=== PATIENT | female | born 1985 | race Caucasian/White ===

== ENCOUNTER 2019-01-03 22:44 | Emergency (ER) | payer BC, OTHER ==
[~2019-01-03] VITALS: Ht 157.5 cm; Wt 60.6 kg
[2019-01-03 23:19] VITALS: Ht 157.5 cm; Wt 60.6 kg
[2019-01-04] MEDS ORDERED: ONDANSETRON 4 MG INJ IV STA (00:20)
[2019-01-04] MEDS ORDERED: HYDROmorphONE 0.5 MG/0.5 ML SYG IV STA ×2 (00:20→01:08)
[2019-01-04] MEDS ORDERED: hydrALAzine 20 MG INJ IV ONE (00:30)
[2019-01-04] MEDS ORDERED: METOCLOPRAMIDE 10 MG INJ IV ONE (01:00)
[2019-01-04] MEDS ORDERED: FUROSEMIDE 40 MG INJ ONE (01:09)
[2019-01-04] MEDS ORDERED: FUROSEMIDE 40 MG INJ IV ONE (01:30)
[2019-01-04] MEDS ORDERED: HYDROmorphONE 2 MG/ML SYG IV STA (03:40)
[2019-01-04] MEDS ORDERED: CARV12.579 PO (04:55)
[2019-01-04] MEDS ORDERED: SPIR25TA PO (04:55)
[2019-01-04] MEDS ORDERED: LISI40TA3 PO (04:55)
[2019-01-04] MEDS ORDERED: ALPR1TAB7 PO (04:55)
[2019-01-04] MEDS ORDERED: CLON1TAB13 PO (04:55)
[2019-01-04] MEDS ORDERED: HYDR-3609 PO (04:55)
[2019-01-04] MEDS ORDERED: POTA20TA15 PO (04:55)
[2019-01-04] MEDS ORDERED: FER325 PO (04:55)
[2019-01-04] MEDS ORDERED: FURO40TA4 PO (04:55)
[2019-01-04] MEDS ORDERED: HYDR-3980 PO (05:48)
--- NOTE | 2019-01-04 05:52 | ERD ---
ER Documentation Chief Complaint Chief Complaint tingling in feet and hands, hx CHF, CKD stage 4 HPI Is a 33-year-old female history of chronic kidney disease stage IV, with some numbness and tingling in her hands and her feet. She was a code green. Mother is getting surgery upstairs. She claims that her blood pressures been elevated and she was unable to take her nighttime medication. She denies any focal neurologic complaints but does complain of headache. Denies any other issues. Headache is mild to moderate intensity with no exacerbating alleviating factors. Denies any fevers or chills. Denies any visual acuity changes. Denies any other current issues ROS All systems reviewed and are negative except as per history of present illness. Medications Home Meds Active Scripts Hydrocodone/Acetaminophen ([place] 10-325 Tablet) 1 Each Tablet, 1 TAB PO Q6H PRN for PAIN, #7 TAB Prov:JOVANNY SHARMA 01/04/19 Reported Medications Clonazepam* (Clonazepam*) 1 Mg Tablet, 1 MG PO Q8H PRN for ANXIETY, TAB 01/04/19 Potassium Chloride* (K-Dur*) 20 Meq Tab.prt.sr, 20 MEQ PO BID for 30 Days, #60 01/04/19 Ferrous Sulfate* (Ferrous Sulfate*) 325 Mg Tabec, 325 MG PO DAILY for 30 Days, #30 01/04/19 Lisinopril* (Lisinopril*) 40 Mg Tablet, 40 MG PO DAILY 01/04/19 Spironolactone* (Aldactone*) 25 Mg Tablet, 25 MG PO BID for 30 Days, #60 01/04/19 Furosemide* (Furosemide*) 40 Mg Tablet, 40 MG PO DAILY for 30 Days, #30 01/04/19 Hydrocodone/Acetaminophen (Hydrocodone-Acetamin 10-325 mg) 1 Each Tablet, 1 TAB PO Q6H PRN for PAIN LEVEL 6-10 01/04/19 Alprazolam* (Alprazolam*) 1 Mg Tablet, 1 MG PO TID for 30 Days, #90 01/04/19 Carvedilol* (Carvedilol*) 12.5 Mg Tablet, 12.5 MG PO DAILY for 30 Days, #30 01/04/19 Allergies Allergies: Coded Allergies: morphine (Verified Allergy, Unknown, paranoid, 01/03/19) nitroglycerin (Verified Allergy, Unknown, pt unsure, 01/03/19) PMhx/Soc History of Surgery: No Anesthesia Reaction: No Hx Neurological Disorder: No Hx Respiratory Disorders: Yes (CHF) Hx Cardiac Disorders: Yes (HTN ) Hx Psychiatric Problems: No Hx Miscellaneous Medical Probl: Yes (CKD) Hx Alcohol Use: No Hx Substance Use: No Hx Tobacco Use: No Smoking Status: Never smoker Physical Exam Vitals Vital Signs Date Temp Pulse Resp B/P (MAP) Pulse Ox O2 O2 Flow FiO2 Time Delivery Rate 01/04/19 77 10 184/135 100 Room Air 03:33 (151) 01/04/19 79 20 167/110 99 Room Air 00:21 (129) 01/03/19 84 16 204/123 100 23:19 (150) Physical Exam Const: No acute distress Head: Atraumatic Eyes: Normal Conjunctiva ENT: Normal External Ears, Nose and Mouth. Neck: Full range of motion. No meningismus. Resp: Clear to auscultation bilaterally Cardio: Regular rate and rhythm, no murmurs Abd: Soft, non tender, non distended. Normal bowel sounds Skin: No petechiae or rashes Back: No midline or flank tenderness Ext: No cyanosis, or edema Neur: Awake and alert Psych: Normal Mood and Affect Result Diagram: 01/04/19 0013 01/04/19 0012 Results 24 hrs Laboratory Tests Test 01/04/19 00:12 01/04/19 00:13 Sodium Level 140 mmol/L Potassium Level 4.0 mmol/L Chloride Level 103 mmol/L Carbon Dioxide Level 26 mmol/L Anion Gap 11 Blood Urea Nitrogen 18 mg/dl Creatinine 0.92 mg/dl Est Glomerular Filtrat Rate mL/min > 60 mL/min Glucose Level 104 mg/dl Calcium Level 9.5 mg/dl Total Bilirubin 0.1 mg/dl Direct Bilirubin 0.00 mg/dl Indirect Bilirubin 0.1 mg/dl Aspartate Amino Transf (AST/SGOT) 17 IU/L Alanine Aminotransferase (ALT/SGPT) 25 IU/L Alkaline Phosphatase 48 IU/L Troponin I < 0.012 ng/ml B-Type Natriuretic Peptide 48 PG/ML Total Protein 7.5 g/dl Albumin 4.4 g/dl Globulin 3.10 g/dl Albumin/Globulin Ratio 1.41 White Blood Count 4.4 10^3/ul Red Blood Count 3.88 10^6/ul Hemoglobin 9.7 g/dl Hematocrit 31.8 % Mean Corpuscular Volume 82.0 fl Mean Corpuscular Hemoglobin 25.0 pg Mean Corpuscular Hemoglobin Concent 30.5 g/dl Red Cell Distribution Width 15.2 % Platelet Count 256 10^3/UL Mean Platelet Volume 9.5 fl Immature Granulocytes % 0.200 % Neutrophils % 51.6 % Lymphocytes % 33.7 % Monocytes % 12.9 % Eosinophils % 1.1 % Basophils % 0.5 % Nucleated Red Blood Cells % 0.0 /100WBC Immature Granulocytes # 0.010 10^3/ul Neutrophils # 2.3 10^3/ul Lymphocytes # 1.5 10^3/ul Monocytes # 0.6 10^3/ul Eosinophils # 0.1 10^3/ul Basophils # 0.0 10^3/ul Nucleated Red Blood Cells # 0.0 10^3/ul Current Medications Medications Dose Sig/[place] Start Time Status Last (Trade) Ordered Route PRN Stop Time Admin Dose Reason Admin Hydralazine 20 mg ONCE ONCE 01/04/19 DC HCl IV 00:30 01/04/19 (Apresoline) 00:30 1 mg ONCE STAT 01/04/19 DC 01/04/19 Hydromorphone IV 00:20 01/04/19 00:30 HCl 00:22 (Dilaudid) Ondansetron 4 mg ONCE STAT 01/04/19 DC 01/04/19 HCl (Zofran IV 00:20 01/04/19 00:30 Inj) 00:22 5 mg ONCE ONCE 01/04/19 DC 01/04/19 Metoclopramid IV 01:00 01/04/19 01:12 e HCl 01:02 (Reglan) Furosemide 80 mg ONCE ONCE 01/04/19 DC 01/04/19 (Lasix) IV 01:30 01/04/19 01:12 01:31 1 mg ONCE STAT 01/04/19 DC 01/04/19 Hydromorphone IV 01:08 01/04/19 01:12 HCl 01:09 (Dilaudid) Furosemide 40 mg STK-MED 01/04/19 DC (Lasix) ONCE .ROUTE 01:09 01/04/19 01:10 2 mg ONCE STAT 01/04/19 DC 01/04/19 Hydromorphone IV 03:40 01/04/19 03:45 HCl 03:41 (Dilaudid) Alprazolam 0.5 mg ONCE ONCE 01/04/19 (Xanax) PO 06:00 01/04/19 06:01 Procedures/MDM Emergency department course: Patient seen in vomit triage was placed in bed from evaluation. Blood work done. Given pain medication. Placed on continuous cardiac monitoring with continuous pulse oximetry. Headache resolved with resolution of blood pressure. She remain nonfocal during serial examinations here in the emergency department. Serial neurological examinations over 4-hour course were normal. EKG: Rate/Rhythm: [Normal Sinus Rhythm], normal rate, regular rhythm QRS, ST, T-waves: [No changes consistent w/ acute ischemia], normal intervals, normal axis, upgoing T waves Impression: [No evidence of ischemia or arrhythmia] Medical decision making: Patient's neurologic symptoms have stabilized while they have been evaluated in the department and are appropriate for outpatient work up. No e/o meningitis, intracranial bleed, seizure, stroke. Patient's blood pressure was elevated (>120/80) but appears stable without evidence of hypertension emergency or urgency. The patient was counseled about the risks of hypertension and urged to pursue outpatient monitoring and therapy within a week with their primary care physician. Departure Diagnosis: Primary Impression: Headache Headache type: unspecified Headache chronicity pattern: unspecified pattern Intractability: not intractable Qualified Codes: R51 - Headache Additional Impression: Hypertension Hypertension type: unspecified Qualified Codes: I10 - Essential (primary) hypertension Condition: Fair Patient Instructions: Headache, Unspecified, Hypertension, Established, Out Of Control JOVANNY SHARMA Jan 04, 2019 05:52
[2019-01-04] MEDS ORDERED: ALPRAZOLAM 0.25 MG TAB PO ONE (06:00)
[2019-01-04 06:23] VITALS: BP 153/102; PULSE 78; RESP 16
== END 2019-01-04 06:24 | disposition home or self-care (01) ==
LOC: EDBD 22:44 → E/R 22:44
DX: I13.0 Hypertensive heart and chronic kidney disease with heart failure and stage 1 through stage 4 chronic kidney disease, or unspecified chronic kidney disease (principal); I50.9 Heart failure, unspecified; N18.4 Chronic kidney disease, stage 4 (severe)
CPT/HCPCS: 36415; 71045; 80053; 82550; 82553; 83880; 84484; 85025; 93005; 96374; 96375; 96376; 99285; J1170; J1940; J2405; J2765; Z7610